=== PATIENT | male | born 1955 | race Caucasian/White ===

== ENCOUNTER 2017-04-09 14:08 | Emergency (ER) | payer OTHER ==
[~2017-04-09] VITALS: Ht 172.7 cm; Wt 98.4 kg
[~2017-04-09 14:08] MED LIST: ACETAMINOPHEN-1 EAC1 PO; ANDROGEL75 GM TOP; ASPIR 8181 MG PO; ASPIRIN EC325 M1; ASPIRIN325; CYMBALTA60 MG PO; DEPO-TESTO200 MG/1 M; FENOFIBRATE160 MG PO; GLUCOPHAGE1000 MG PO; GLUCOPHAGE500 MG PO; HYDROCHLOROTHIA25 M2; HYDROCHLOROTHIA25 M2 PO; HYDROCODONE-APA1 TA1 PO; LEVOTHYROXINE0.2 M1; LOVASTAT20; LOVASTATIN 20 M20 MG PO; MULTIVITAMINS PO; NORFLEX100 MG PO; OMEPRAZOLE; ONDANSETRON HCL4 M2 PO; ONE-A-DAY WOMENS; PAMELOR50 MG PO; PRILOSEC 10MG C10 MG PO; PRILOSEC 20 MG20 MG PO; ROBAXIN500 MG PO; SYNTHROID100 MCG PO; SYNTHROID88 MCG PO; VICODIN 5-5001 EACH PO; XARELTO15 MG PO
[2017-04-09 14:39] LABS: HEMATOCRIT 47.9 % (42.0-52.0); HEMOGLOBIN 16.3 gm/dL (14.0-18.0); MCH 28.6 pg (26.0-34.0); MCHC 34.1 g/dL (28.0-37.0); MCV 83.8 fL (80.0-100.0); MPV 8.7 fl. (7.2-11.1); NUCLEATED RBCS 0 /100WBC; PLATELET COUNT* 254 thou/uL (150-400); RBC 5.71 mil/uL (4.50-6.00); WBC 8.3 thou/uL (4.0-11.0)
[2017-04-09 14:48] LABS: APTT 31.8 Seconds (25.0-31.3); INR 1.2; PROTIME 11.6 Seconds (9.20-11.50)
[2017-04-09 14:49] LABS: ANION GAP 12 mmol/L (7-16); BUN 15 mg/dL (7-18); CALCIUM 9.1 mg/dL (8.5-10.1); CHLORIDE 96 mmol/L (98-107); CO2 27 mmol/L (21-32); CREATININE 1.1 mg/dL (0.6-1.3); GLUCOSE 380 mg/dL (70-99); POTASSIUM 3.5 mmol/L (3.5-5.1); SODIUM 135 mmol/L (136-145)
[2017-04-09 15:07] LABS: ALBUMIN 3.5 g/dL (3.4-5.0); ALKALINE PHOSPHATASE 92 U/L (46-116); CK-MB MASS < 0.5 ng/mL (<0.5-3.6); LIPASE 210 U/L (73-393); MAGNESIUM 1.4 mg/dL (1.8-2.4); NT-PRO BRAIN NAT PEPTIDE 38 pg/mL (<300); SGOT 28 U/L (15-37); SGPT 34 U/L (30-65); TOTAL BILIRUBIN 0.5 mg/dL (<0.1-1.0); TOTAL PROTEIN 7.4 g/dL (6.4-8.2); TROPONIN-I LEVEL <0.06 ng/mL (<0.06)
[2017-04-09 15:18] LABS: ABSOLUTE LYMPHOCYTES 0.9 thou/uL (0.8-5.3); ABSOLUTE MONOCYTES 0.8 thou/uL (0.0-1.2); ABSOLUTE NEUTROPHILS 6.6 thou/uL (1.6-8.1)
[2017-04-09 15:19] LABS: PLATELET ESTIMATE ADEQUATE
[2017-04-09 16:28] VITALS: BP 127/86
--- NOTE | 2017-04-09 16:42 | EKG ---
[place] [address] ELECTROCARDIOGRAM REPORT Name: YI ASTUDILLO Room: [facility]#: [id number] Admission: 04/09/17 Attend Phys: Discharge: 04/09/17 Date of : 57 Report #: [id number] THIS REPORT FOR: //name// [facility] ED Test Date: 2017-04-09 Test Time: 14:41:44 Pat Name: YI ASTUDILLO Department: Room: Gender: Talent Rep: Osiris APONTE : 1955 Requested By: Pradeep Beltran Order Number: [id number] MD: Parish Padilla Measurements Intervals [place] Rate: 101 P: 33 MI: 130 QRS: -31 QRSD: 93 T: 33 QT: 342 QTc: 444 Interpretive Statements Sinus tachycardia Left axis deviation Compared to ECG 02/16/2017 20:28:09 Sinus rhythm no longer present Electronically Signed On 04-09-2017 16:41:52 [employer] by Parish Padilla [email or web address] <ELECTRONICALLY SIGNED> By: Parish Padilla MD, [facility] 04/09/17 1641 1441 1441 Parish Padilla MD, FACC /EPI
[2017-12-06] MEDS ORDERED: PERCOCET 5-3251 EACH PO (14:31)
== END 2017-04-09 16:29 | disposition home or self-care (01) ==
LOC: M.ERS 14:08
PROVIDERS: Family Medicine
DX: R07.89 Other chest pain (principal); I10 Essential (primary) hypertension; E11.9 Type 2 diabetes mellitus without complications; Z98.890 Other specified postprocedural states; Z88.5 Allergy status to narcotic agent

== ENCOUNTER → 2017-10-05 | Outpatient (CLI) | payer OTHER ==
[~2017-10-05] MED LIST changes: +PERCOCET 5-3251 EACH PO
== END ==
LOC: M.MRI 09-25 13:05
DX: M48.061 Spinal stenosis, lumbar region without neurogenic claudication (principal); G89.29 Other chronic pain; M54.42 Lumbago with sciatica, left side

== ENCOUNTER → 2017-10-19 | Outpatient (CLI) | payer OTHER | LOC: M.RAD 10:32 | DX: M43.16 Spondylolisthesis, lumbar region (principal) ==

== ENCOUNTER → 2017-11-23 | Outpatient (CLI) | payer OTHER | LOC: M.MRI 11:29 | DX: M51.16 Intervertebral disc disorders with radiculopathy, lumbar region (principal); M48.061 Spinal stenosis, lumbar region without neurogenic claudication; M25.552 Pain in left hip; E11.9 Type 2 diabetes mellitus without complications ==

== ENCOUNTER → 2017-12-06 | Outpatient (CLI) | payer OTHER ==
--- NOTE | 2018-01-14 10:00 | PAINCON ---
[address] [address] PAIN MANAGEMENT CONSULTATION Name: YI ASTUDILLO Room: [facility]#: [id number] Admission: 12/06/17 Attend Phys: Jenniffer Rushing MD Discharge: Date of : 57 Report #: [id number] THIS REPORT FOR: //name// CC: Mariusz Rushing DATE OF SERVICE: 12/06/2017 FOLLOWUP COMPLAINT: Lumbar pain. FOLLOWUP HISTORY: The patient is a 62-year-old gentleman who has returned to the pain clinic for evaluation of left hip as well as he has left shoulder pain. He has experienced pain in the left hip that is radiating down to the top of his knee. He would like to proceed with an injection. He has been using oxycodone 5/325 approximately 3 tablets daily. Notes that the pain is worse with walking, climbing stairs, lifting and bending. It improves with use of medication, heat as well as cold. Rates it as a 3/10. Does have a history of lumbar radiculopathy. ALLERGIES: No known drug allergies. PAST MEDICAL HISTORY: Hypertension, bilateral knee surgery, fatty tumor removal, diabetes type 2, and concussion. CURRENT MEDICATIONS: ____ testosterone topical, fenofibrate 160 mg, levothyroxine 88 mcg, aspirin 81 mg chewable, Cymbalta 60 mg, hydrochlorothiazide 25 mg, multivitamin, and omeprazole 10 mg. LABORATORY DATA: MRI of the lumbar spine dated 11/23/2017: 1. L2-L3, there is mild facet hypertrophy and ligamentum flavum hypertrophy. There is mild diffuse disk bulging without sequela. 2. L3-L4, there is mild diffuse disk bulge with facet hypertrophy and ligamentum flavum hypertrophy. AP diameter of the thecal sac is within normal. There is left greater than right neural foraminal narrowing. 3. L4-L5, there is circumferential disk bulge, slightly greater in the left posterior lateral region with possible contact of the left L4 nerve root, after it exits the neural foramen. PAIN CLINIC ASSESSMENT: 1. The patient is not being treated for rheumatoid arthritis, does have some arthritic changes in his knees. 2. Height 5 feet 8 inches, weight 201 pounds, BMI is 30.7. 3. Vital signs: Blood pressure 122/76, heart rate 96, respiratory rate 16, room air saturation 98%, temperature is 98.2. Pain score 3/10. 4. Fall risk. The patient has not fallen in the last 3 months. 5. Blood thinner. The patient is on a [place] [address] PAIN MANAGEMENT CONSULTATION Name: YI ASTUDILLO Room: [facility]#: [id number] Admission: 12/06/17 Attend Phys: Jenniffer Rushing MD Discharge: Date of : 57 Report #: [id number] 6. History of hypertension. The patient is being treated for hypertension. 7. Opioid therapy greater than 6 weeks. The patient is receiving some opioid medications. 8. Risk assessment tool, low for opioid use. 9. Functional assessment tool. 10. Recreational drug use. The patient denies use of recreational drugs. 11. Tobacco: The patient denies use of tobacco at this juncture. 12. Alcohol: The patient denies use of alcoholic beverages on a regular basis. PHYSICAL EXAMINATION: GENERAL: The patient is a well-developed, well-nourished white male. Appears his stated age. He is alert, oriented x 3. HEENT: Normocephalic, atraumatic. Extraocular muscles intact. Sclerae nonicteric. Mucous membranes are moist. HEART: Regular rate. LUNGS: Without rhonchi or rales. GASTROINTESTINAL: ____ masses. Bowel sounds present. MUSCULOSKELETAL: Without kyphosis, scoliosis, or lordosis. Upper extremity muscle strength is judged to be 5/5 on the right side and 4+/5 on the left side with pain in the left shoulder. Lower extremity pain with pain radiating down into the top of the left knee. IMPRESSION: 1. Left hip pain. 2. Left shoulder pain. 3. Hypertension. 4. Bilateral knee surgery. 5. Fatty tumor removal. 6. Diabetes type 2. 7. Concussion. RECOMMENDATION: We will renew the patient's pain medication. A script for Percocet 5/325 one p.o. t.i.d. has been written. The patient will call us if he has any problems with his medications or concerns. We would like to thank you for letting us participate in his care. We hope he continues to improve. <ELECTRONICALLY SIGNED> By: Jenniffer Rushing MD 01/14/18 1000 2104 0353N. Ranjith Rushing MD /kim
--- NOTE | 2018-01-14 10:00 | PAINCON ---
[address] [address] PAIN MANAGEMENT CONSULTATION Name: YI ASTUDILLO Room: [facility]#: [id number] Admission: 12/06/17 Attend Phys: Jenniffer Rushing MD Discharge: Date of : 57 Report #: [id number] THIS REPORT FOR: //name// CC: Mariusz Rushing DATE OF SERVICE: 12/06/2017 DIAGNOSIS: Myofascial pain. We discussed treatment options with the patient. Possibility of a trigger point injection was discussed. Possible complications which could include but are not limited to infection, increased muscle soreness, headache, worsening of myofascial pain were discussed. The patient elects to proceed. PROCEDURE NOTE: The patient was taken to the procedure area. He was then assisted in getting on the examination table. He was placed perpendicular to the table. The chair was placed under his feet. His back was sterilely prepped with a Betadine solution. The trigger point near the latissimus dorsi and gluteus nicol was identified. A 25-gauge needle was then advanced to the area of discomfort. The patient states this did reproduce his pain and discomfort. A total of 80 mg Depo-Medrol, 10 mL of 0.5% bupivacaine was injected. The patient tolerated the procedure well. There were no complications. He remained in the pain clinic for an appropriate amount of time. He will follow up in the future as needed. We would like to thank you for letting us participating in his care. <ELECTRONICALLY SIGNED> By: Jenniffer Rushing MD 01/14/18 1000 1715 2137N. Ranjith Rushing MD /PMT
== END ==
LOC: M.PC 04:41
DX: M79.1 Myalgia (principal); M54.5 Low back pain; Z79.899 Other long term (current) drug therapy; Z79.82 Long term (current) use of aspirin; Z79.84 Long term (current) use of oral hypoglycemic drugs